=== PATIENT | female | born 1975 | race Caucasian/White ===

== ENCOUNTER 2023-10-07 20:39 | Emergency (ER) | payer MEDICARE, MEDICAID, SELFPAY ==
[2023-10-07 20:46] VITALS: BP 114/77; PULSE 92; RESP 16; TEMP 36.4; O2SAT 96; BMI 30.2
--- NOTE | 2023-10-07 21:14 | ED_ITS ---
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 She has no vision in the right eye and now has had increased redness swelling and mattering. Symptoms been present for 3 days. She has no involvement of the left eye. She has no systemic symptoms such as fevers chills night sweats or signs of [employer] infection. 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 No other significant symptoms are noted. Related Data Allergies Allergy/AdvReac Type Severity Reaction Status Date / Time acetaminophen [From [place]] Allergy Severe Verified 10/07/23 20:46 ciprofloxacin [From C[place]] Allergy Severe Rash Verified 10/07/23 20:46 hydrocodone [From [place]] Allergy Severe Verified 10/07/23 20:46 nitrofurantoin Allergy Severe Rash Verified 10/07/23 20:46 [From Macrobid] Review of Systems Status of ROS: Reports: 10 or more systems reviewed and unremarkable except as noted in History and below [facility] Medical History H/O prematurity ?Z87.898 - Personal history of other specified conditions (ICD-10) Learning disability ?F81.9 - Developmental disorder of scholastic skills, unspecified (ICD-10) Detached retina ?H33.20 - Serous retinal detachment, unspecified eye (ICD-10) Exam Narrative: Exam Narrative: EXAM GENERAL: Patient appears comfortable and well. EYES: No scleral icterus. With normal a good eye exam on the left. Right eye shows mattering redness and diffuse irritation. Limited function of the eye with regards extraocular muscles difficult posterior eye exam. ENT: Tympanic membranes and oropharynx normal. THYROID: no thyroid nodules or thyromegaly. LYMPH: No supraclavicular or cervical lymphadenopathy. SKIN: Visible skin seen during exam normal or with benign process only. EXT: No dependent lower extremity pedal edema. HEART: Regular rate and rhythm with no murmurs, rubs, or gallops. LUNGS: Clear to auscultation bilaterally with no crackles or wheezes. ABD: Soft, non tender, non distended. PSYCH: Good eye contact, speech is not pressured. Const: Vital Signs, click to edit/add: Vital Signs - 24 hr 10/07/23 20:46 Temperature 97.6 F Pulse Rate [Left P ulse Oximeter] 92 Respiratory Rate 16 Blood Pressure [Ri ght Upper Arm] 114/77 Pulse Oximetry 96 Oxygen Delivery Me thod Room Air Course Course ED Course: Patient seen and examined. Vital Signs Vital signs: Initial Vital Signs Temperature 97.6 F 10/07/23 20:46 Temperature Source Temporal Artery Scan 10/07/23 20:46 Pulse Rate 92 10/07/23 20:46 Pulse Rhythm Regular 10/07/23 20:46 Respiratory Rate 16 10/07/23 20:46 Blood Pressure 114/77 10/07/23 20:46 Blood Pressure Mean 89 10/07/23 20:46 Blood Pressure Position Sitting 10/07/23 20:46 Pulse Oximetry 96 10/07/23 20:46 Oxygen Delivery Method Room Air 10/07/23 20:46 Vital Signs Temperature 97.6 F 10/07/23 20:46 Pulse Rate 92 10/07/23 20:46 Respiratory Rate 16 10/07/23 20:46 Blood Pressure 114/77 10/07/23 20:46 Pulse Oximetry 96 10/07/23 20:46 Oxygen Delivery Method Room Air 10/07/23 20:46 Temperature 97.6 F 10/07/23 20:46 Pulse Rate 92 10/07/23 20:46 Respiratory Rate 16 10/07/23 20:46 Blood Pressure 114/77 10/07/23 20:46 Pulse Oximetry 96 10/07/23 20:46 Oxygen Delivery Method Room Air 10/07/23 20:46 MDM - Eye Problem MDM Narrative Medical decision making narrative: Patient seen and examined. Patient has no vision in the right eye and now has mattering redness consistent with conjunctivitis. Patient has complex history with regards to the right eye including prematurity as well as retinal detachment. This time I did treated with gentamicin drops 2 drops q.i.d. and recommended close ophthalmology follow-up. Patient understands and will be seeing someone this coming week. Discharge Plan Discharge Clinical Impression: Conjunctivitis Patient Disposition: Home, Self-Care Condition: Stable Instructions: Conjunctivitis (ED) Additional Instructions: Gentamicin eyedrops provided in the ER 2 drops 4 times a day right eye Follow-up with ophthalmology this coming week. Report any change in symptoms in the interim. Activity Level: No Restrictions Discharge Diet: Regular Stand Alone Forms: [employer] Info Instructions
== END 2023-10-07 21:47 | disposition home or self-care (01) ==
LOC: ED 21:42
PROVIDERS: Emergency Provider Internal Medicine
DX: H10.9 Unspecified conjunctivitis (principal)
CPT/HCPCS: 99283